=== PATIENT | female | born 1940 | race Caucasian/White ===

== ENCOUNTER 2016-09-29 14:03 | Emergency (ER) | payer OTHER ==
[2016-09-29] MEDS ORDERED: DIPHTH,PERTUSS(ACELL),TET 0.5 ML DISP.SYRIN IM ONE (14:36)
--- NOTE | 2016-09-29 14:37 | PDOC ---
History of Present Illness - General History Source: Patient Exam Limitations: No Limitations - History of Present Illness Initial Comments: 09/29/16 14:42 The patient is a 76 year old female with no PMHx who presents to the ED, walked in along with her daughter because of falling down stairs while going to basement. Patient injured right foot and sustained a laceration on the left side of her head. Denies LOC. No other injury, no other pain. Allergies: penicillin, sulfa, clindamycin. <Rosetta Almaraz A - Last Filed: 09/29/16 17:07> <Terence Morrison S - Last Filed: 10/02/16 08:32> - General Chief Complaint: Injury Stated Complaint: FELL DOWN STAIRS, LACERATION TO HEAD Time Seen by Provider: 09/29/16 14:09 Past History <Rosetta Almaraz A - Last Filed: 09/29/16 17:07> <Terence Morrison S - Last Filed: 10/02/16 08:32> - Past Medical History Allergies/Adverse Reactions: Allergies Allergy/AdvReac Type Severity Reaction Status Date / Time clindamycin Allergy Verified 09/29/16 14:18 Penicillins Allergy Verified 09/29/16 14:18 Sulfa (Sulfonamide Allergy Verified 09/29/16 14:18 Antibiotics) Home Medications: Ambulatory Orders Aspirin [ASA -] 81 mg PO DAILY 09/29/16 Review of Systems - Review of Systems Musculoskeletal: Yes: Other (right foot injury) Integumentary: Yes: Other (left sided head laceration) <Rosetta Almaraz - Last Filed: 09/29/16 17:07> - Review of Systems Able to Perform ROS?: Yes Is the patient limited Maori proficient: Yes Constitutional: No: Symptoms Reported, See HPI, Chills, Diaphoresis, Fever, Loss of Appetite, Malaise, Night Sweats, Weakness, Weight Stable, Unintentional Wgt. Loss, Unexplained wgt Loss, Other HEENTM: Yes: See HPI Integumentary: Yes: Symptoms Reported, See HPI (Laceration scalp) Neurological: No: Symptoms reported, See HPI, Headache, Numbness, Paresthesia, Pre-Existing Deficit, Seizure, Tingling, Tremors, Weakness, Unsteady Gait, Ataxia, Dizziness, Other All Other Systems: Reviewed and Negative <Terence Morrison - Last Filed: 10/02/16 08:32> *Physical Exam - Physical Exam Comments: 09/29/16 14:44 Mild to moderate swelling on dorsal right foot. Normal achilles tendon. 1 inch laceration on left temporal parietal area, with minimal bleeding. Neck is supple, nontender. Normal neuro exam. <Rosetta Almaraz - Last Filed: 09/29/16 17:07> - Physical Exam General Appearance: Yes: Nourished, Appropriately Dressed, Mild Distress HEENT: positive: ANDIE Neck: positive: Supple Respiratory/Chest: positive: Lungs Clear Cardiovascular: positive: Regular Rate Extremity: positive: Normal Capillary Refill, Other (Mild to moderate ) <Terence Morrison - Last Filed: 10/02/16 08:32> Procedures - Laceration/Wound Repair Left Head Wound Length: 2.6 to 5.0 cm Wound Explored: clean Wound's Depth, Shape: superficial, linear Irrigated w/ Saline: Yes Betadine Prep: Yes Anesthesia: 2% Lidocaine Amount of Anesthetic (ccs): 8 Wound Debrided: minimal Wound Repaired With: Carlos Alberto Number of Sutures: 5 Layer Closure: No Sterile Dressing Applied: Yes <Rosetta Almaraz - Last Filed: 09/29/16 17:07> ED Treatment Course - RADIOLOGY Radiograph Interpretation: 09/29/16 15:[address] by Dr. Holly Barfield Impression: Mild volume loss without evidence of acute intracranial pathology. Chronic sinusitis. <Rosetta Almaraz - Last Filed: 09/29/16 17:07> Medical Decision Making - Medical Decision Making 09/29/16 17:07 Observed for 3 hours. <Rosetta Almaraz - Last Filed: 09/29/16 17:07> *DC/Admit/Observation/Transfer - Attestations Scribe Attestion: 09/29/16 14:44 Documentation prepared by Rosetta Almaraz, acting as director global medical affairs for Terence Morrison MD. <Rosetta Almaraz - Last Filed: 09/29/16 17:07> - Discharge Dispostion Admit: No <Terence Morrison - Last Filed: 10/02/16 08:32> Diagnosis at time of Disposition: Foot sprain Qualifiers: Encounter type: initial encounter Laterality: left Qualified Code(s): S93.602A - Unspecified sprain of left foot, initial encounter Scalp laceration Qualifiers: Encounter type: initial encounter Qualified Code(s): S01.01XA - Laceration without foreign body of scalp, initial encounter - Discharge Dispostion Disposition: HOME Condition at time of disposition: Improved - Patient Instructions Printed Discharge Instructions: DI for Closed Head Injury, DI for Foot Sprain Additional Instructions: [place] removal in 10 [place]
[2016-09-29 15:16] VITALS: BP 179/90; PULSE 97; TEMP 98.1; BMI 31.3
[2016-09-29] MEDS ORDERED: ACETAMINOPHEN 325 MG TABLET (FP) PO ONE (15:57)
[2016-09-29] MEDS ORDERED: ACETAMINOPHEN 325 MG TABLET (FP) ONE (15:58)
[2016-09-29] MEDS ORDERED: LIDOCAINE HCL 2% (20ML MULTI-DOSE VIAL) NR ONE (15:58)
== END 2016-09-29 17:48 | disposition home or self-care (01) ==
LOC: FER 14:03
PROC: 0HQ0XZZ Repair Scalp Skin, External Approach (ICD-10-PCS; principal; 2016-09-29)
DX: S01.91XA Laceration without foreign body of unspecified part of head, initial encounter (principal); S93.602A Unspecified sprain of left foot, initial encounter; W10.9XXA Fall (on) (from) unspecified stairs and steps, initial encounter; Y93.89 Activity, other specified; Y92.9 Unspecified place or not applicable
CPT/HCPCS: 12001-25; 70450-TC; 73630-TC-RT; 90715; 99282-25